=== PATIENT | female | born 1985 | race Caucasian/White ===

== ENCOUNTER 2017-12-17 17:06 | Emergency (ER) | payer OTHER ==
[~2017-12-17] VITALS: Ht 165.1 cm; Wt 61.2 kg
[~2017-12-17 17:06] MED LIST: BACT800T5 PO; CYAN25005; FEXO15TA PO; [UNRECOGNIZED DRUG - CODE]
[2017-12-17 17:13] VITALS: BP 116/73; PULSE 70; RESP 16; TEMP 98.6; O2SAT 100
[2017-12-17 17:31] LABS: BILIRUBIN, URINE NEG (NEG); BLOOD, URINE LARGE (NEG); GLUCOSE,URINE NEG (NEG); KETONE, URINE 40 mg/dL (NEG); NITRITE,URINE NEG (NEG); URINE COLOR YELLOW (YELLW/STRAW); URINE LEUKOCYTE ESTERASE NEG (NEG)
[2017-12-17 17:39] LABS: RBC, URINE 100-200 /hpf (0-3); SQUAMOUS EPITHELIAL CELL URINE 0-5 /hpf (0-5)
[2017-12-17] MEDS ORDERED: LEXA5TAB PO (18:01)
[2017-12-17 18:28] VITALS: BP 94/58; PULSE 70; RESP 16; O2SAT 100
[2017-12-17] MEDS ORDERED: SODIUM CHLOR 0.9% 1000 ML INJ 1,000 ML IV ONE ×2 (18:30)
--- NOTE | 2017-12-17 18:33 | PD ---
HPI Chief Complaint: Abdominal Pain Time Seen by Provider: 18:08 Travel History International Travel<30 days: No Contact w/Intl Traveler<30days: No Traveled to known affect area: No History of Present Illness HPI The patient was seen and examined in the presence of the nurse. This patient complains of vaginal bleeding and pelvic cramping. She found that she was 5 days ago with a home test. 3 days ago she started having left lower quadrant cramping and some bleeding. Severity is moderate. No alleviating factors. No exacerbating factors. She was not on control. No prior history of ectopic. [facility] Past Medical History Medical History: Denies Significant Hx Diminished Hearing: No Tetanus Vaccination: Unknown Influenza Vaccination: No ?: Unknown LMP: November 11 Past Surgical History Surgical History: No Previous Surgery Social History Alcohol Use: No Tobacco Use: No Substance Use: No Allergies-Medications (Allergen,Severity, Reaction): Coded Allergies: doxycycline (Unverified Allergy, Severe, fever, mouth blister, nausea, ) Reported Meds & Prescriptions Reported Meds & Active Scripts Active Reported Lexapro (Escitalopram Oxalate) 5 Mg Tab 5 Mg PO DAILY Review of Systems General / Constitutional: No: Fever Eyes: No: Visual changes HENT: No: Headaches Cardiovascular: No: Chest Pain or Discomfort Respiratory: No: Shortness of Breath Gastrointestinal: No: Abdominal Pain Genitourinary: Positive: Pelvic Pain, Vaginal Bleeding, No: Dysuria Musculoskeletal: No: Pain Skin: No Rash Neurologic: No: Weakness Psychiatric: No: Depression Endocrine: No: Polydipsia Hematologic/Lymphatic: No: Easy Bruising Physical Exam Narrative GENERAL: Well-nourished, well-developed patient in no apparent distress. SKIN: Focused skin assessment reveals no rash and nodules. Skin is Warm and dry. HEAD: Atraumatic. Normocephalic. EYES: Pupils equal and round. No scleral icterus. No injection or drainage. ENT: No nasal bleeding or discharge. Mucous membranes pink and moist. NECK: Trachea midline. No JVD. CARDIOVASCULAR: Regular rate and rhythm. No murmur appreciated. RESPIRATORY: No accessory muscle use. Clear to auscultation. Breath sounds equal bilaterally. GASTROINTESTINAL: Abdomen soft, non-tender, nondistended. Hepatic and splenic margins not palpable. MUSCULOSKELETAL: No obvious deformities. No clubbing. No cyanosis. No edema. NEUROLOGICAL: Awake and alert. No obvious cranial nerve deficits. Motor grossly within normal limits. Normal speech. PSYCHIATRIC: Appropriate mood and affect; insight and judgment normal. Pelvic: Speculum exam reveals scant dried blood in the vault but no active hemorrhage. Cervix is closed and without motion tenderness. Some mild vague left adnexal area tenderness, none on the right Data Data Last Documented VS Vital Signs Date Time Temp Pulse Resp B/P (MAP) Pulse Ox O2 Delivery O2 Flow Rate FiO2 12/17/17 22:02 79 16 99/62 (74) 99 Room Air 12/17/17 17:13 98.6 Orders Orders Urinalysis - C+S If Indicated (12/17/17 17:16) Ed Urine Pregnancytest Poc (12/17/17 17:16) Iv Access Insert/Monitor (12/17/17 18:20) Complete Blood Count With Diff (12/17/17 18:20) Basic Metabolic Panel (Bmp) (12/17/17 18:20) Beta Hcg (Quant/Titer) (12/17/17 18:20) Sodium Chlor 0.9% 1000 Ml Inj (Ns 1000 M (12/17/17 18:30) Sodium Chlor 0.9% 1000 Ml Inj (Ns 1000 M (12/17/17 18:30) Complete Rh (12/17/17 18:20) Us Pelvis Preg W Transvaginal (12/17/17 ) Labs Laboratory Tests Test 12/17/17 17:11 12/17/17 18:26 Urine Collection Type CLEAN CATCH Urine Color YELLOW Urine Turbidity SL CLOUDY Urine pH 5.0 Urine Specific Alvin GREATER/EQUAL 1.030 Urine Protein NEG mg/dL Urine Glucose (UA) NEG mg/dL Urine Ketones 40 mg/dL Urine Occult Blood LARGE Urine Nitrite NEG Urine Bilirubin NEG Urine Urobilinogen 0.2 MG/DL Urine Leukocyte Esterase NEG Urine RBC 100-200 /hpf Urine WBC 3-5 /hpf Urine Squamous Epithelial Cells 0-5 /hpf Microscopic Urinalysis Comment CULT NOT INDICATED White Blood Count 5.9 TH/MM3 Red Blood Count 4.34 MIL/MM3 Hemoglobin 13.5 GM/DL Hematocrit 39.3 % Mean Corpuscular Volume 90.6 FL Mean Corpuscular Hemoglobin 31.0 PG Mean Corpuscular Hemoglobin Concent 34.3 % Red Cell Distribution Width 12.4 % Platelet Count 270 TH/MM3 Mean Platelet Volume 8.6 FL Neutrophils (%) (Auto) 54.7 % Lymphocytes (%) (Auto) 33.7 % Monocytes (%) (Auto) 7.2 % Eosinophils (%) (Auto) 3.8 % Basophils (%) (Auto) 0.6 % Neutrophils # (Auto) 3.3 TH/MM3 Lymphocytes # (Auto) 2.0 TH/MM3 Monocytes # (Auto) 0.4 TH/MM3 Eosinophils # (Auto) 0.2 TH/MM3 Basophils # (Auto) 0.0 TH/MM3 CBC Comment DIFF FINAL Differential Comment Blood Urea Nitrogen 10 MG/DL Creatinine 0.54 MG/DL Random Glucose 80 MG/DL Calcium Level 8.8 MG/DL Sodium Level 137 MEQ/L Potassium Level 3.7 MEQ/L Chloride Level 104 MEQ/L Carbon Dioxide Level 23.4 MEQ/L Anion Gap 10 MEQ/L Estimat Glomerular Filtration Rate 133 ML/MIN Human Chorionic Gonadotropin, Quant 25006 MIU/ML MDM Medical Decision Making Medical Screen Exam Complete: Yes Emergency Medical Condition: Yes Medical Record Reviewed: Yes Differential Diagnosis Ectopic, threatened , miscarriage Narrative Course I have reviewed the patient's electronic medical record. No prior blood bank entries to view Patient is very certain she is A positive blood type IV placed and labs sent I gave her 2 L normal saline IV bolus because she had vasovagal episode when the IV was placed. She has a needle phobia and the blood pressure was normal prior but after the insertion she became pale and lightheaded and her blood pressure dropped into the mid 80s. CBC and metabolic studies are normal Beta titer 11,000 Transvaginal ultrasound was done to rule out ectopic. There is a 5 week 5 day intrauterine fetus noted. Heartbeat cannot be positively identified. I reviewed this in detail with patient and boyfriend at bedside. Discussed pelvic rest precautions. She will follow-up with OB Blood pressure remains around systolic 100. However she feels fine. She is up walking around and is not dizzy or lightheaded. She has not had any bleeding while here Diagnosis Primary Impression: Threatened affecting intrauterine Additional Instructions: Follow-up with OB physician Utilize pelvic rest precautions Med/Other Pt SpecificInfo: Other Disposition: 01 DISCHARGE HOME Condition: Stable Sergey Wolfe MD Dec 17, 2017 18:33
[2017-12-17 18:34] LABS: AUTOMATED NEUTROPHIL # 3.3 TH/MM3 (1.8-7.7); BASOPHIL % 0.6 % (0.0-2.0); EOSINOPHIL # 0.2 TH/MM3 (0-0.4); EOSINOPHIL % 3.8 % (0.0-4.0); HEMATOCRIT 39.3 % (35.0-46.0); HEMOGLOBIN 13.5 GM/DL (11.6-15.3); LYMPH % 33.7 % (9.0-44.0); MEAN CELL VOLUME 90.6 FL (80.0-100.0); MEAN CORPUSCULAR HGB CONC 34.3 % (32.0-36.0); MEAN PLATELET VOLUME 8.6 FL (7.0-11.0); MONO % 7.2 % (0.0-8.0); MONOCYTE # 0.4 TH/MM3 (0-0.9); NEUT % 54.7 % (16.0-70.0); PLATELET COUNT 270 TH/MM3 (150-450); RED BLOOD COUNT 4.34 MIL/MM3 (4.00-5.30); RED CELL DISTRIBUTION WIDTH 12.4 % (11.6-17.2); WHITE BLOOD COUNT 5.9 TH/MM3 (4.0-11.0)
[2017-12-17 18:46] LABS: BICARBONATE 23.4 MEQ/L (21.0-32.0); CALCIUM 8.8 MG/DL (8.5-10.1)
[2017-12-17 18:50] LABS: CREATININE 0.54 MG/DL (0.50-1.00)
[2017-12-17 19:21] VITALS: BP 96/62; PULSE 78; RESP 18; O2SAT 100
[2017-12-17 20:31] VITALS: BP 99/58; PULSE 85; RESP 18; O2SAT 100
--- NOTE | 2017-12-17 22:01 | RADRPT ---
EXAM DATE: 12/17/2017 9:40 PM EDT AGE/SEX: 32 years / Female INDICATIONS: Pelvic pain and bleeding. CLINICAL DATA: This is the patient's initial encounter. Patient reports that signs and symptoms have been present for 4 - 6 days and indicates a pain score of 3/10. MEDICAL/SURGICAL HISTORY: . x 1. PID. STDs. Depression. Anxiety. . Liposucti on. COMPARISON: No prior exams available for comparison. TECHNIQUE: Real-time ultrasound of the pelvis was performed using an endovaginal transducer. BHC,100 MEASUREMENTS: Uterus:__10.1 x 8.1 x 5.5 cm Endometrial Stripe:__>20 mm Right Ovary:__ 3.3 x 1.8 x 1.9 cm Left Ovary:__ 4.1 x 3.4 x 2.9 cm FINDINGS: Uterus: The uterus is somewhat retroflexed. The transvaginal imaging demonstrates hypertrophy of the endometrium with a small fluid collections consistent with a gestational sac. There is a pole evident measuring approximately 2 mm. This would correlate with a gestational age of 5 weeks 5 days. I do not see a heartbeat however this is quite early in this patient will need follow-up ultras ound to assess for viability. Right Ovary: Ovary contains no mass or significant cystic lesion. Left Ovary: The examination demonstrates a 3.3 x 2.6 x 2.3 cm complex cyst most likely representing corpus luteal cyst. Other: There is a trace amount of free fluid seen within the pelvis.. CONCLUSION: 1. The examination demonstrates an intrauterine gestation with estimated gestational age of 5 weeks 5 days. There is no heartbeat identified however this is quite early and the patient will need follow-up ultrasound to assess for viability. 2. Hypertrophic changes within the endometrium. A small area of subchorionic hemorrhage is not exclu ded. Electronically signed by: Wilver Kaye MD 12/17/2017 9:59 PM EDT
[2017-12-17 22:02] VITALS: BP 99/62; PULSE 79; RESP 16; O2SAT 99
[2017-12-17 22:30] VITALS: BP 97/62; PULSE 78; RESP 18; O2SAT 99
== END 2017-12-17 23:00 | disposition home or self-care (01) ==
LOC: PHED 17:06
DX: O20.0 Threatened abortion (principal); Z3A.01 Less than 8 weeks gestation of pregnancy
CPT/HCPCS: 76801; 76817; 80048; 81001; 84702; 84703; 85025; 86901; 96360; 96361; 99284; J7030